=== PATIENT | male | born 1965 | race Caucasian/White ===

== ENCOUNTER → 2017-06-10 | Outpatient (CLI) | payer MEDICARE, MEDICAID ==
[2014-01-29 15:03] VITALS: BMI 24.9
[~2017-06-10] MED LIST: ADAL20KI2 SQ; ALP5 PO; AMO500 PO; ASP325 PO; ASPI-757 PO; ASPIRIN PO; AUG875 PO; AZITHROMYCIN; BACDS PO; CEPH-13 PO; CITA-128 PO; CLO5 PO; COUGH SYRUP; CYCL10TA29 PO; DIA2 PO; DOCU-299 PO; GUAI480S48 PO; GUALA600 PO; HUMERA SQ; HUMIRA IJ; IBUP400T13 PO; LEV500 PO; LISI-362 PO; LOR1 PO; LORA-633 PO; MELA1TAB15 PO; MELA3TAB31 PO; METH5 PO; METR250 PO; MUCINEX PO; OXYC-823 PO; OXYC-869 PO; OXYC20TA86 PO; OXYCODONE; OXYCOTIN PO; OXYIR PO; PER PO; PERD PO; PRE20 PO; SENN-83 PO; SENN8.6C2 PO; SULF500T48 PO; VAR05PT PO
--- NOTE | 2017-06-10 15:05 | RADIOLOGY IMAGING REPORT ---
FACILITY: [facility] [place] PATIENT NAME: Yonas Tovar : 1965 MR: [id number] V: [id number] EXAM DATE: ORDERING PHYSICIAN: MICHAEL RODRIGUEZ TECHNOLOGIST: Location: [facility] Patient: Yonas Tovar : 1965 Visit/Account:[id number] Date of Sevice: 06/10/2017 LIVER HISTORY: Elevated LFTs, daily drinker COMPARISON: CT of the pelvis December 22, 2009 FINDINGS: Gallbladder: Surgically removed Liver: The liver appears normal in size although has a slightly lobular contour. Discrete mass is no t identified Common duct: Normal, 6.2 mm diameter. Pancreas: Partially obscured by bowel, visualized aspects unremarkable. Right kidney: Right kidney appears unremarkable measuring 10.4 cm in length Upper abdominal aorta and IVC: Patent. Ascites: None visualized. IMPRESSION: Post surgical changes from cholecystectomy Slightly lobular contour to the liver although no evidence of hepatomegaly or focal hepatic mass Pancreas not well seen due to overlying bowel gas Report Dictated By: Sharon Brasher MD at 06/10/2017 2:59 PM Report E-Signed By: Sharon Brasher MD at 06/10/2017 3:01 PM WSN:[id number]
== END ==
LOC: US 04:03
PROVIDERS: ATTEND Family Medicine
DX: K76.89 Other specified diseases of liver (principal); Z90.49 Acquired absence of other specified parts of digestive tract
CPT/HCPCS: 76705

== ENCOUNTER → 2017-11-04 | Outpatient (CLI) | payer MEDICARE, MEDICAID ==
[2014-01-29 15:03] VITALS: BMI 24.9
--- NOTE | 2017-11-04 14:14 | RADIOLOGY IMAGING REPORT ---
FACILITY: [facility] PATIENT NAME: Yonas Tovar : 1965 MR: [id number] V: [id number] EXAM DATE: ORDERING PHYSICIAN: ALYSON HENDERSON TECHNOLOGIST: Location: [facility] [place] Patient: Yonas Tovar : 1965 Visit/Account:[id number] Date of Sevice: 11/04/2017 WHOLE BODY BONE SCAN HISTORY: Multiple myeloma TECHNIQUE: 24.6 mCi technetium 99m HDP was injected intravenously. Delayed anterior and posterior wh ole body gamma camera images were obtained. Additional gamma camera images: Right left lateral skull, anterior and posterior pelvis COMPARISON: None. FINDINGS: Bone radiotracer activity: There is increased isotope uptake seen over the right shoulder and distal forearms bilaterally. Increased isotope uptake is seen at several sites in the cervical thoracic an d lumbar spine and over multiple ribs bilaterally. Intense isotope uptake is seen over the posterior aspect of a mid left rib. Degenerative uptake is seen over the left knee in the feet. Is a four we ek defect over the right knee consistent with arthroplasty Patchy uptake over the calvarium also noted Extraosseous radiotracer activity: Unremarkable. Renal and urinary collecting system activity: Unremarkable. IMPRESSION: Isotope uptake over the right shoulder and wrists suggests prior trauma although plain film correlati on is recommended Isotope uptake over multiple ribs could be related to prior fractures. There is intense isotope upta ke over the posterior aspect of the mid left rib suggesting an infiltrative process Focal areas of isotope uptake over the cervical and thoracic and lumbar spine may be related to degen erative changes versus myelomatous involvement Patchy chest uptake over the calvarium could be myelomatous in nature Report Dictated By: Sharon Brasher MD at 11/04/2017 2:05 PM Report E-Signed By: Sharon Brasher MD at 11/04/2017 2:10 PM MERLYN:KARL
== END ==
LOC: NUC 08:32
PROVIDERS: ATTEND Nurse Practitioner Family
DX: C90.00 Multiple myeloma not having achieved remission (principal)
CPT/HCPCS: 78306; A9503

== ENCOUNTER → 2017-11-21 | Day surgery (SDC) | payer MEDICARE, MEDICAID ==
[2014-01-29 15:03] VITALS: Ht 177.8 cm; Wt 76.7 kg
[~2017-11-21] VITALS: Ht 177.8 cm; Wt 76.7 kg
[~2017-11-21] MED LIST changes: +ALB18R INH; +FAMOTIDINE 20 MG TAB PO ONE; +HEPARIN SOD LCK FLSH 100 UN/ML ONE; +KETAMINE HCL 200 MG/20 ML MDV ONE; +LIDOCAINE/SOD BICARB 8.4% SYR ID ONE; +MIDAZOLAM 2 MG/2 ML VIAL IVP PRN; +NORMOSOL R SOLN(*) 1000 ML BAG 1,000 ML IV PRN; +PROPOFOL EMUL(*) 10MG/ML 20 ML 40 ML ONE
[2017-11-21 06:30] VITALS: BP 140/89
--- NOTE | 2017-11-21 06:39 | EKG ---
FACILITY: [facility] PATIENT NAME: TONI HARVEY : [id number] MR: [id number] V: [id number] EXAM DATE: ORDERING PHYSICIAN: BEATRIZ HERNANDEZ TECHNOLOGIST: Test Reason : Blood Pressure : / mmHG Vent. Rate : 090 BPM Atrial Rate : 090 BPM P-R Int : 156 ms QRS Dur : 092 ms QT Int : 380 ms P-R-T Axes : 045 029 032 degrees QTc Int : 464 ms Sinus rhythm No acute appearing findings When compared with ECG of 18-JAN-2014 12:49, No significant change was found Confirmed by JAVED BETANCOURT ([id number]) on 11/21/2017 12:18:12 PM Referred By: Confirmed By:JAVED BETANCOURT
[2017-11-21 07:08] LABS: PLATELET COUNT, AUTOMATED 39 K/uL (150-450)
--- NOTE | 2017-11-21 07:55 | RADIOLOGY IMAGING REPORT ---
FACILITY: [facility] PATIENT NAME: Yonas Tovar : 1965 MR: [id number] V: [id number] EXAM DATE: ORDERING PHYSICIAN: CHRISTINE TRACY TECHNOLOGIST: Location: [facility] Patient: Yonas Tovar : 1965 Visit/Account:[id number] Date of Sevice: 11/21/2017 3 views cervical spine Indication: Preop Comparison: January 26, 2014. Findings: Mild straightening of the normal cervical lordosis. Limited visualization below the C6-C7 disc space secondary to overlapping shoulders. No visualized acute abnormality. The prevertebral soft tissues are within normal limits. The odontoid is unremarkable. The vertebral body heights are well maintained. 2 mm retrolisthesis of C3 on C4. Mild multilevel degenerative disc disease, worst at C6-C7. Mild/moderate multilevel facet arthropathy . IMPRESSION: 1. No acute osseous or acute alignment abnormality of the cervical spine on this examination. 2. Grade 1 retrolisthesis of C3 on C4. 3. Mild/moderate degenerative changes within the cervical spine. Report Dictated By: Balta Jones MD at 11/21/2017 7:49 AM Report E-Signed By: Balta Jones MD at 11/21/2017 7:51 AM WSN:[id number]
--- NOTE | 2017-11-21 08:19 | Short(Outpt) Discharge Summary ---
Discharge Summary Reason for Hosp/Final Diag: (1) Leukopenia Status: Chronic Hospital Course & Plan: Bone marrow biopsy completed without problems. (2) Thrombocytopenia Status: Chronic (3) ANEMIA, UNSPECIFIED Status: Chronic Departure Discharge to: Home, Self Care Discharge Instructions Home Meds Active Scripts Oxycodone Hcl (OXYCONTIN) 10 Mg Tab.er.12h, 10 MG PO Q4H Y for PAIN, #6 Prov:ECORO-ALYSON SCHAEFER DYE MACHINE TENDER-C, ONC 10/29/17 Reported Medications Albuterol Sulfate (VENTOLIN HFA) 18 Gm Inh, 1-2 PUFF INH 3-4XD, INH 11/12/17 Cyclobenzaprine Hcl (CYCLOBENZAPRINE HCL) 10 Mg Tablet, 10 MG PO HS, TAB 01/21/14 [Christine] No Conflict Check, 40 MG SQ [id number], 0 Refills 01/06/11 Lorazepam (Ativan) 1 Mg Tab, 0.5-1 MG PO DAILY Y for ANXIETY for 1 Day, 0 Refills 01/06/11 Lisinopril (Lisinopril) 10 Mg Tablet, 10 MG PO QDAY for Blood Pressure MDD 10 for 30 Days, 0 Refills As directed. 01/06/11 Diet: Regular Activity: As Tolerated Special Instructions: Follow up with your Geospatial Specialist/Oncologist in the next 2 weeks to discuss the results of this test. You may remove the band-aid from your right lower back on 11/23/17, then you can shower. After showering, leave the incision open to air but leave the steristrip in place until it falls off on its own. Do not immerse the incision for 1 week. Problem Qualifiers (1) Leukopenia: Leukopenia type: unspecified Qualified Codes: D72.819 - Decreased white blood cell count, unspecified BEATRIZ LAO MD Nov 21, 2017 08:19
--- NOTE | 2017-11-21 08:23 | Post Operative Progress Note ---
Post Operative Progress Note Date: Nov 21, 2017 Time: 08:19 Surgeon: Hugo Dictation number: [id number] Anesthesia: TIVA by Dr. Kaplan Pre-Op Diagnosis: Thrombocytopenia, leukocytopenia, anemia Post-Op Diagnosis: CHRISSY Findings: None Procedure(s): Bone marrow biopsy Specimen Removed:(May be N/A): Bone marrow Core biopsy of cortical bone Complications: None Fluids: See anesthesia record Estimated Blood Loss: Minimal Date OP Note Dictated: Nov 21, 2017 Time OP Note Dictated: 08:20 BEATRIZ LAO MD Nov 21, 2017 08:23
--- NOTE | 2017-11-21 08:50 | OPERATIVE REPORT 1 ---
EVENT DATE: November 21, 2017 SURGEON: Jey Arias MD ANESTHESIOLOGIST: Maycol Kaplan MD ANESTHESIA: TIVA PREOPERATIVE DIAGNOSIS 1. Thrombocytopenia . 2. Leukocytopenia. 3. Anemia. POSTOPERATIVE DIAGNOSIS 1. Thrombocytopenia . 2. Leukocytopenia. 3. Anemia. PROCEDURE PERFORMED Bone marrow biopsy and aspiration. COMPLICATIONS None. CONDITION Stable. BLOOD LOSS Minimal. INDICATIONS This is a 51-year-old gentleman who was referred to me by the paving foreman as he has multiple cell lines that low and he is requesting a bone marrow biopsy to help him figure out why they are low. DESCRIPTION OF PROCEDURE The patient was brought to the operating room and placed in the left lateral decubitus position on the table. The skin overlying his right posterior superior iliac spine was prepped and draped in sterile fashion. A timeout was completed, and I anesthetized both the skin and the periosteum with 1% Lidocaine plain. I then made a small stab incision in the skin and then used the needle to access the marrow cavity and aspirated 20 mL. of bone marrow into a Heparinated syringe. This was passed immediately to the helper animal laboratory who started processing the sample right away. She confirmed it was good sample. This needle was removed and the core needle was inserted, and I removed two small cores of bone. They were very small because this patient's bone was very hard, and it was very difficult to get the core needle to get a good sample of the bone. After this, I removed the core needle, passed the core samples off the field, and then cleaned and dried the skin. I placed the Steri-Strip over the stab incision and covered it with a band-aid. He was then brought to the recovery room in stable condition having tolerated the procedure without any apparent problems. LAZARO
== END ==
LOC: OR 00:08
PROVIDERS: ATTEND Surgery
DX: D69.6 Thrombocytopenia, unspecified (principal); M06.9 Rheumatoid arthritis, unspecified; I10 Essential (primary) hypertension; F41.9 Anxiety disorder, unspecified
CPT/HCPCS: 36415; 38221; 72040; 85025; 88305; 93005; A9270; J1642; J2250; J2704; J3490; 82310; 82374; 82435; 82565; 82947; 84132; 84295; 84520

== ENCOUNTER 2017-12-02 13:30 | Outpatient (RCR) | payer MEDICARE, MEDICAID ==
[2014-01-29 15:03] VITALS: Wt 79.2 kg
[2017-10-08 14:00] VITALS: BP 128/86
[2017-10-08 16:06] LABS: PLATELET COUNT, AUTOMATED 40 K/uL (150-450)
--- NOTE | 2017-10-09 19:10 | ONCOLOGY CONSULTATION ---
EVENT DATE: October 08, 2017 REFERRING PHYSICIAN Danny Ramon DO REASON FOR CONSULTATION Thrombocytopenia, leukopenia, macrocytosis. CHIEF COMPLAINT Arthralgias, fatigue. HISTORY OF PRESENT ILLNESS Yonas is a very pleasant, 51-year-old gentleman with a history of rheumatoid arthritis, on Humira, hypertension, as well as alcohol and tobacco abuse. He presents today at the request of Dr. Ramon for evaluation of abnormal CBC, including significant thrombocytopenia. The patient reports that he has been treated for a long period of time for his rheumatoid arthritis with Humira, and this has been quite successful at keeping his symptoms under control. He had previously been taking methotrexate and multiple other medications that did not work as well for his rheumatoid arthritis. He reports no fever. He does have expected complaints of joint pain. He reports no shortness of breath, chest pain, or cough. He has had no abdominal pain or changes in his bowel habits. He reports no new urinary symptoms. He does have some easy bruising, but he has had no epistaxis, melena, or hematochezia. He states that he has been drinking pretty heavily for years, but most recently he has averaged anywhere from three alcoholic beverages per night to help him sleep to one pint per night sometimes on the weekends. He did have an ultrasound performed a few months ago that showed nodular changes of the liver. REVIEW OF SYSTEMS Otherwise negative, and all systems reviewed. PAST MEDICAL HISTORY 1. Rheumatoid arthritis. 2. Hypertension. 3. Alcohol abuse. 4. Smoking. CURRENT MEDICATIONS 1. OxyContin. 2. Cyclobenzaprine. 3. Humira injections q.14 days. 4. Lorazepam p.r.n. 5. Lisinopril. ALLERGIES No known drug allergies. He is allergic to WASP VENOM. SOCIAL HISTORY The patient smokes cigarettes, and he drinks. See above. There is also history of use of marijuana. FAMILY HISTORY There are no known hematologic malignancies in the family. PHYSICAL EXAMINATION VITAL SIGNS: Temperature is 98.2, blood pressure 128/86, heart rate is 106, respirations 16, oxygen saturation is 89% on room air. Weight is 78.3 kg. GENERAL: Patient is alert and oriented times three. No apparent distress, sitting in the exam room chair, and appears somewhat chronically ill. HEENT: Anicteric sclerae. NEUROLOGIC: Grossly nonfocal, although his gait is somewhat antalgic. EXTREMITIES: No edema, clubbing, or cyanosis. SKIN: No concerning rash or lesion, although he does have some modest bruising over his forearms and hands. LABORATORY STUDIES Reviewed per the [facility] record as well as outside labs from [facility]. On September 25, 2017, his white blood cell count was 3000 with 40% neutrophils, hemoglobin 16.3, hematocrit 47.9, platelet count 51,000. IMAGING Please see above. ASSESSMENT AND PLAN Thrombocytopenia, macrocytosis, leukopenia/neutropenia. I had a good visit with Yonas today. Symptomatically, he seems to be getting along fairly well. He does have good control over his rheumatoid arthritis symptoms with Humira. He does not have concerning signs or symptoms to suggest significant bleeding. He is not anemic. We spent time today reviewing his labs. He understands that his white count is modestly low, specifically his neutrophil count. He is macrocytic, and most concerning, his platelet count has fallen to the 50,000 range. Upon review of his historical labs, his platelet count back in 2013 was in the 80,000 to 90,000 range. We spent time discussing the possible contributors to his CBC abnormalities. Alcohol is certainly contributing, and I have recommended strongly that he slow down his drinking and stop entirely. He thinks that he can do so, and he will put significant effort toward this. The Humira can also cause some changes in his CBC, but severe thrombocytopenia that we are seeing is not common. Because he has done so well with Humira, it is difficult to recommend that he change this. With autoimmune disorders such as rheumatoid arthritis, immune cytopenias can also be seen. For further workup, I have recommended that he have blood drawn today for some additional studies. This includes a repeat CBC and peripheral smear as well as a reticulocyte count, evaluation for circulating inhibitor, assessment for vitamin B12 and folate deficiency, as well as a plasma cell dyscrasia workup. We discussed that if his peripheral blood workup is unremarkable, and his counts remain abnormal with abstention from alcohol, his next step would be bone marrow biopsy. I will plan to see him back in clinic in the next two to three months after a repeat CBC. Presumably, he will not be drinking at that point. Thank you very much, Dr. Ramon, for allowing me to take part in the care of this very pleasant gentleman. Please do not hesitate to call with any questions or concerns. LAZARO
[2017-10-29 14:02] VITALS: BP 136/91
--- NOTE | 2017-10-29 15:13 | Oncology Progress Note ---
History of Present Illness Evaluation Evaluation Date: Oct 29, 2017 Evaluation Time: 14:10 Primary Care Provider Primary Care Provider: Danny Rodriguez DO Accompanied by Accompanied by: Self Last seen by : Lily 10/08/17 Chief Complaint Chief Complaint Plasma cell dyscrasia workup Review Oncology History Oncology History - 2013 his platelet count has fallen to the 50,000 range. Upon review of his historical labs, his platelet count back in 2013 was in the 80,000 to 90,000 range. We spent time discussing the possible contributors to his CBC abnormalities. Alcohol is certainly contributing, and I have recommended strongly that he slow down his drinking and stop entirely. He thinks that he can do so, and he will put significant effort toward this. The Humira can also cause some changes in his CBC, but severe thrombocytopenia that we are seeing is not common. Because he has done so well with Humira, it is difficult to recommend that he change this. With autoimmune disorders such as rheumatoid arthritis, immune cytopenias can also be seen. For further workup, I have recommended that he have blood drawn today for some additional studies. This includes a repeat CBC and peripheral smear as well as a reticulocyte count, evaluation for circulating inhibitor, assessment for vitamin B12 and folate deficiency, as well as a plasma cell dyscrasia workup. We discussed that if his peripheral blood workup is unremarkable, and his counts remain abnormal with abstention from alcohol, his next step would be bone marrow biopsy. I will plan to see him back in clinic in the next two to three months after a repeat CBC. Presumably, he will not be drinking at that point. Treatment Treatment - Patient has been on self injection Humira 40mg SQ Q14 Days. since 1997 HPI HPI Yonas Padilla is a very pleasant 51-year-old man, who has history of rheumatoid arthritis on treatment with Humira for the last 20 years approximately. . Patient was referred by Dr. Rodriguez for abnormal CBC that revealed Thrombocytopenia, macrocytosis, leukopenia/neutropenia. Further hematology work up after visit with Dr. Comer on 10/08/2017 a SPEP/WILLY pattern shows and IgG type kappa monoclonal protein. The following. Highly suspicions for Multiple Myeloma. Patient's reports being in his usual state of health. Besides working on stop drinking and smoking he informs me that he is doing well otherwise. on physical exam right shoulder pain with limited ROM, Right knee replacement in 2015. with Limited ROM. He is AAOX4, hemodynamically stable and afebrile, denies any cardiac type chest pain, no abdominal pain, no fevers at home, no night sweats, chills, spontaneous bleeding. oral intake appetite, okk, no changes in bowel or bladder pattern. Significant PMH of Rheumatoid arthritis. Hypertension. Alcohol abuse. Smoking. He informs me that he is trying to stop drinking, and smoking. Patient had several additional insightful and appropriate questions especially regarding Bone marrow biopsy, and elevated liver enzymes, due to alcohol consumption. I believe I answered all of their questions to his satisfaction. and he agrees with the treatment plan thus far. He has follow up appointment with PCP Q 3 months and Weight Tester Q6 months. Work up done on 10/08/2017 Beta-2 Glycoprotein 1 Antibodies IgG, IgM is 0 Monoclonal protein detection Quantitation and Characterization, SPEP, WILLY, IgA, IgG, IgM SPEP/WILLY interpretation: M- spike in to beta region. The monoclonal protein peak accounts for 2.59 g/dL of the total 3.09 g/dL of protein in the beta region. this quantitation may include compliment and or transferring components. WILLY pattern shows an IgG type kappa monoclonal protein IMunnoglobulin G is 2740 mg/dL Immunoglobulin A 466 mg/dL Immunoglobulin M is 330 mg/dL T.Protein Electropheresis is 9.20g/dL Alpha 1 globulin 0.15g/dL Beta Globulin 3.09g/dL Living Conditions Lives alone, on Disability since age 17. , has his Brother Kelechi Tovar who lives in [place] as a support system. Social/Occupational History Social History: Social History This is a 51 Yr old White male, he is S Single and has [] Children Hx Smoking: Yes Allergies & Medications Allergies: Coded Allergies: Wasp Venom (Verified Adverse Reaction, Severe, 01/21/14) Home Meds Active Scripts Oxycodone Hcl (OXYCONTIN) 10 Mg Tab.er.12h, 10 MG PO Q4H Y for PAIN, #6 Prov:ALYSON HENDERSON-Jana, ONC 10/29/17 Reported Medications Cyclobenzaprine Hcl (CYCLOBENZAPRINE HCL) 10 Mg Tablet, 10 MG PO HS, TAB 01/21/14 [Christine] No Conflict Check, 40 MG SQ [id number], 0 Refills 01/06/11 Lorazepam (Ativan) 1 Mg Tab, 0.5-1 MG PO DAILY Y for ANXIETY for 1 Day, 0 Refills 01/06/11 Lisinopril (Lisinopril) 10 Mg Tablet, 10 MG PO QDAY for Blood Pressure MDD 10 for 30 Days, 0 Refills As directed. 01/06/11 Discontinued Reported Medications Varenicline Tartrate (CHANTIX) 0.5 Mg Tab, 1 MG PO BID, TAB 10/08/17 Review of Systems Constitution: Denies Appetite/Weight Change, Denies Fever/Chills/Sweating, Denies Recent Infection, Denies Other HEENT: No EARS: Tinnitus, No NOSE: Nasal Discharge, No THROAT: Sore Throat, No EYES: Dipolpia, No EARS: Hearing Problems, No NOSE: Epistaxis, No THROAT: Mouth Ulcers, No EYES: Vision Change, No OTHER Respiratory: No Cough, No Expectoration, No Hemoptysis, No Shortness of Breath , No OTHER Cardiovascular: No Chest Pain, No Orthopnea, No Edema, No Palpitations, No OTHER Gastrointestinal: No Nausea, No Vomitting, No Diarrehea, No Constipation, No Heart Burn, No Swallowing Difficulties, No Abdominal Pain, No Other Gentiourinary: No Hematuria, No Dysuria, No Nocturia, No Other Musculoskeletal: Joint Pain Hematological: Bruising, Fatigue Skin: Erythema Psychiatric: Anxiety, Other Vital Signs Vital Signs Temperature: 98.4 Pulse: 102 BP Systolic: 136 BP Diastolic: 91 Respiratory Rate: 16 O2 SAT: 91 O2 Delivery: Height (feet) Height (inches) Weight lb: 169 Weight oz: Weight Kg (Maximo): Pain: 6 ECOG 1 Physical Exam General: Looks Stable HEENT: HEAD:Atraumatic, No EYES: Conjuctivitis, No EYES: Icterus, No MOUTH: Mucocitis, No MOUTH: Oral Thrush, No SINUS: Tenderness to Palpation, No Other Neck: Supple, No Cervical Lymphadenopathy, No Subclavicular Lymphadopathy, No Thyromegaly, No Other Lungs: Clear to Auscultation, Percussion Bilaterally, No Other Heart: Regular Rate and Rhythm Abdomen: Soft and Nontender, No Hepatosplenomegaly, No Masses, No Other Extremities: No Cyanosis, No Clubbing, No Edema, Other (Right shoulder ROM, ) Lymphatics: No Peripheral Lymphadenopathy, No Other Psychiatric: Mood appears normal Skin: No Skin Rashes, Bruising, No Purpura, No Moist Desquamation, No Dry Desquamation, No Errythema, No Mild Errythema, No Moderate Errythema, No Severe Errythema, No Induration, No Other Breast: No No Masses, No No Nipple Discharge, No No Skin Changes, No Other Assessment and Plan Assessment and Plan Yonas Padilla is a very pleasant 51-year-old man, who has history of rheumatoid arthritis on treatment with Humira for the last 20 years approximately. Patient was referred by Dr. Rodriguez for abnormal CBC that revealed Thrombocytopenia, macrocytosis, leukopenia/neutropenia. Further hematology work up after visit with Dr. Comer on 10/08/2017 a SPEP/WILLY pattern shows and IgG type kappa monoclonal protein. The following. Highly suspicions for Multiple Myeloma. Patient's reports being in his usual state of health. Besides working on stop drinking and smoking he informs me that he is doing well otherwise. I explained to the patient the importance to proceed with the workup in a timely manner, he agrees with the plan. He informs me that he would like to detox for a few weeks before going through the bone marrow biopsy. He will still undergo the x-ray skeletal bone survey in Nuclear medicine. An updated medication reconciliation performed today. DIAGNOSTIC DATA CBC showed a WBC of 3.1; MCV 100.8; platelet count 40; ANC 0.8; chemistry panel shows T bili of 1.8; AST 75; AST 50; alkaline phosphatase 129; and total protein 9.3; vitamin B12 624; folate 9.7; SPEP/WILLY interpretation: M- spike in to beta region. The monoclonal protein peak accounts for 2.59 g/dL of the total 3.09 g/dL of protein in the beta region. this quantitation may include compliment and or transferring components. WILLY pattern shows an IgG type kappa monoclonal protein IMunnoglobulin G is 2740 mg/dL Immunoglobulin A 466 mg/dL Immunoglobulin M is 330 mg/dL T.Protein Electropheresis is 9.20g/dL Alpha 1 globulin 0.15g/dL Beta Globulin 3.09g/dL CHRONIC 1. Rheumatoid arthritis. Patient has been on self injection Humira 40mg SQ Q14 Days. since 1997 2. Hypertension. on Lisinopril 10 mg PO daily 3. Alcohol abuse. He is working to stop 4. Smoking. he smokes 5-10 cigarettes per day, he previously used Chantix. Smoking cessation education provided, and he is on board with plan 5. Right Knee replacement in 2014, he takes Oxycodone 10mg Po Q 4hours. 6. Anxiety. takes 0.5-1mg Ativan Qday 7. Insomnia. on Cyclobenzaprine.10mg QHS 8. Drug/Alcohol induced liver injury. Elevated LFTs, mostly from alcohol consumption and possible Humira. PLAN #[address] Arias for Bone marrow biopsy #2 Bone marrow biopsy with compaas, multiple myeloma #3 X-ray skeletal bone survey in Nuclear medicine #4 Include magnesium on CBC CMP with next lab draw #5 Return to clinic after the above #[address] Comer on 01/08/2018 #7 Follow up with PCP in 2 months and with Weight Tester in 4 months. -Education, patient instructed to go to ER immediately and or call Clinic if any big bruises, active bleeding, Shortness of Breath, Temp >/=100.4, fevers, chills, cardiac type chest pain, bleeding, excessive bruising, headaches, blurry vision, dizziness, abdominal pain, difficulty swallowing, and pain unrelieved by medication. TIME SPENT: 45 minutes 40 > minutes includes but not limited to discussion, counselling and co-ordination~ of care. Discussion with other health care providers, record review, review of lab work, diagnostic tests. Plan discussed extensively with patient. All the questions answered today. Thank you for the opportunity to be involved in the care of Yonas Tovar. Billing Level: Return visit 5 CC Copies to: DANNY RODRIGUEZ DO; KEITH COMER MD-ALYSON SCHAEFER CREDIT CONTROL OFFICER-C, ONC Oct 29, 2017 15:13
[2017-11-04 09:51] VITALS: BP 127/91
[~2017-12-02 13:30] MED LIST changes: -FAMOTIDINE 20 MG TAB PO ONE; -HEPARIN SOD LCK FLSH 100 UN/ML ONE; -KETAMINE HCL 200 MG/20 ML MDV ONE; -LIDOCAINE/SOD BICARB 8.4% SYR ID ONE; -MIDAZOLAM 2 MG/2 ML VIAL IVP PRN; -NORMOSOL R SOLN(*) 1000 ML BAG 1,000 ML IV PRN; +PNEUMOC 13-VAL CONJ-DIP CRM/PF 0.5 ML SYR IM ONLY ONE; -PROPOFOL EMUL(*) 10MG/ML 20 ML 40 ML ONE
[2017-12-02 13:42] VITALS: BP 113/77
--- NOTE | 2017-12-03 04:48 | RADIOLOGY IMAGING REPORT ---
FACILITY: [facility] - [place] PATIENT NAME: Yonas Tovar : 1965 MR: [id number] V: [id number] EXAM DATE: ORDERING PHYSICIAN: KEITH COMER TECHNOLOGIST: Location: [facility] - [place] Patient: Yonas Tovar : 1965 Visit/Account:[id number] Date of Sevice: 12/02/2017 Skeletal survey: Indication: Multiple myeloma. Technique: Comparison: Whole body bone scan dated 10/05/2017. Findings: The lateral view of the skull demonstrates uniform skeletal mineralization. No osteolytic lesions are identified. No destructive lesions are identified in the cervical spine. There is moderate degenerative disc dise ase and mild osteoarthritic spur formation. No destructive lesions are identified in the thoracic spine. There is mild scoliosis and mild degener ative disc space narrowing. There is a calcified lesion in the left paraspinal soft tissues, likely r epresenting a lymph node. No destructive lesions are identified in the lumbar spine. There is spondylolysis and spondylolisthes is at L5-S1. There is mild degenerative disc space narrowing and marginal osteophyte formation at all levels. There appears to be subtle sclerosis in the medial aspect of the left seventh rib, correlating with t he abnormality seen on bone scan. No bone destruction or fracture is observed. The findings suggest n eoplastic infiltration. There are old healed fractures in the lateral margins of the right eighth, ni nth, and 10th ribs. The heart size is normal. The lungs are well expanded and clear. No focal parenchymal or pleural abno rmality is identified. A frontal view of the pelvis demonstrates no evidence of destructive skeletal lesions. The hips appea r symmetrical and unremarkable. The bilateral femurs appear well mineralized and intact. No destructi ve lesions are identified. A right knee prosthesis appears unremarkable. Impression: No osteolytic skeletal lesions are clearly identified. There appears to be subtle scleros is in the left seventh rib, suggesting neoplastic infiltration. There are some old healed fractures i n the right ribs. Degenerative disc disease and osteoarthritis are observed in the cervical, thoracic, and lumbar spine . Report Dictated By: Oliver Rivera MD at 12/03/2017 4:27 AM Report E-Signed By: Oliver Rivera MD at 12/03/2017 4:44 AM WSN:[id number]
--- NOTE | 2017-12-04 08:11 | [facility]USTER ONCOLOGY NOTE ---
EVENT DATE: December 02, 2017 CHIEF COMPLAINT/REASON FOR VISIT Mr. Tovar is a pleasant 51-year-old gentleman with a history of alcohol abuse and rheumatoid arthritis that presents with thrombocytopenia and leukopenia with macrocytosis. HISTORY OF PRESENT ILLNESS Yonas returns. He has a known history of RA, on Humira, as well as significant alcohol and tobacco abuse. He had an appropriate workup including a bone marrow biopsy but this showed only a very faint MGUS but no other abnormalities. No lymphoma. No features consistent with ITP. I suspected based on his history and the results from this extensive bone marrow evaluation that his major issue is alcohol abuse. We discussed this and he agrees and he is working to cut down. He believes he has cut down about 50% thus far and will continue to do so. I believe it is critical for him to continue to follow with Dr. Ramon as well as potentially with hepatology/GI as well. His rheumatoid arthritis and Humira are likely minor contributors as well but I think the benefits of continued treatment outweigh the risks. PAST MEDICAL HISTORY 1. RA. 2. Hypertension. 3. Alcohol abuse. 4. Tobacco use. MEDICATIONS 1. OxyContin. 2. Cyclobenzaprine. 3. Humira injections every two weeks. 4. Lorazepam as needed. 5. Lisinopril. ALLERGIES No known drug allergies. SOCIAL HISTORY Significant alcohol use, greater than three to four drinks per night on a daily basis, sometimes more. FAMILY HISTORY No known cancer in the family. REVIEW OF SYSTEMS CONSTITUTIONAL: No fevers, chills, significant weight change. HEENT: No headache or vision changes. CARDIOVASCULAR: No chest pain, dyspnea on exertion or edema. RESPIRATORY: No shortness of breath, wheeze or cough. GASTROINTESTINAL: No nausea or vomiting. GENITOURINARY: No dysuria or hematuria. MUSCULOSKELETAL: No weakness or joint pain. PSYCHIATRIC: No anxiety or depression. ENDOCRINE: No heat or cold intolerance. SKIN: No concerning rashes or lesions. Remainder of the 14-point review of systems is otherwise negative. PHYSICAL EXAMINATION VITAL SIGNS: Blood pressure 113/77, pulse 107, respiratory rate 16, temperature 97.4 Fahrenheit, oxygen saturation 91% on room air. Weight 79.2 kg. Pain 5/10, fatigue 0/10. GENERAL: Stable condition, resting comfortably in the chair. HEENT: Normocephalic, atraumatic. LYMPHATIC: No appreciable cervical, supraclavicular or axillary adenopathy. EXTREMITIES: No clubbing, cyanosis or edema. PSYCHIATRIC: Normal mood and affect. Patient appeared slightly nervous at the beginning of the visit but calmed during our time together. IMPRESSION AND PLAN Mr. Tovar is a pleasant 51-year-old gentleman with the followin. Thrombocytopenia, neutropenia, monocytosis. I believe that the main issue is mild bone marrow dysfunction due to alcohol use. He has a very small MGUS that should be followed periodically and we will repeat a kappa level. 0.2% of the bone marrow biopsy showed clonal plasma cells. This is in the body of the report. I do not believe it is contributing to any of his lab abnormalities. 2. Alcohol abuse. I believe this is his most important health issue right now. As Dr. Ramon has done, I stressed the importance of cutting back and hopefully completely discontinuing alcohol. He states he has cut it back in half and will continue to do so. With his low platelet count, he would be at risk for significant bleeding if he had a major trauma. However, no intervention is required at this time. ITP is on the differential. However, I think it is more likely related to the liver. I answered all of his questions today. I will see him back in the new year. Billing: Return visit level 5. Total time 45 minutes, counseling time 20. MTDD
== END 2018-01-05 ==
LOC: ONC 13:30
PROVIDERS: ATTEND Internal Medicine Medical Oncology
DX: D69.6 Thrombocytopenia, unspecified (principal); D75.89 Other specified diseases of blood and blood-forming organs; D72.819 Decreased white blood cell count, unspecified; F10.99 Alcohol use, unspecified with unspecified alcohol-induced disorder; I10 Essential (primary) hypertension; M06.9 Rheumatoid arthritis, unspecified; Z72.0 Tobacco use; G47.00 Insomnia, unspecified; Z96.651 Presence of right artificial knee joint; F41.9 Anxiety disorder, unspecified; Z23 Encounter for immunization
CPT/HCPCS: 36415; 77075; 82607; 82746; 82784; 83883; 84165; 85025; 85045; 85525; 85610; 85613; 85635; 85670; 85730; 85732; 86146; 86334; 90471; 90670; G0463; 82040; 82247; 82310; 82374; 82435; 82565; 82947; 84075; 84132; 84155; 84295; 84450; 84460; 84520; 99202; 99212

== ENCOUNTER 2018-06-27 09:27 | Outpatient (RCR) | payer MEDICARE, MEDICAID ==
[2014-01-29 15:03] VITALS: BMI 24.9
[~2018-06-27 09:27] MED LIST changes: -PNEUMOC 13-VAL CONJ-DIP CRM/PF 0.5 ML SYR IM ONLY ONE
== END 2018-07-01 13:02 | disposition home or self-care (01) ==
LOC: ONC 09:27
PROVIDERS: ATTEND Internal Medicine
DX: C90.00 Multiple myeloma not having achieved remission (principal); D64.9 Anemia, unspecified

== ENCOUNTER → 2018-07-04 | Outpatient (REF) | payer MEDICARE, MEDICAID ==
[2014-01-29 15:03] VITALS: BMI 24.9
== END ==
LOC: ZZSENDIN 15:54
PROVIDERS: ATTEND Family Medicine
DX: L95.8 Other vasculitis limited to the skin (principal)
CPT/HCPCS: 86255

== ENCOUNTER 2018-07-09 13:17 | Outpatient (RCR) | payer MEDICARE, MEDICAID ==
[2014-01-29 15:03] VITALS: Wt 79.9 kg
[2018-07-01 15:01] VITALS: BP 138/94
[2018-07-01 16:08] LABS: PLATELET COUNT, AUTOMATED 41 K/uL (150-450)
[2018-07-07 14:06] VITALS: BP 121/82
--- NOTE | 2018-07-08 03:13 | ONCOLOGY FOLLOW UP NOTE ---
EVENT DATE: July 07, 2018 CHIEF COMPLAINT/REASON FOR VISIT Mr. Tovar is a pleasant 52-year-old gentleman with a history of tobacco and alcohol use, rheumatoid arthritis, who presented with thrombocytopenia, leukopenia, macrocytosis, and an elevated MGUS. HISTORY OF PRESENT ILLNESS Yonas returns. He has a known history of RA on Humira as well as significant alcohol and tobacco use. He had an appropriate workup including a bone marrow biopsy, but this showed only a very faint MGUS, but no other abnormalities. No lymphoma and no features consistent with ITP. It is common to see low-level MGUS with RA. I suspect that his bone marrow was suppressed due to alcohol use and inflammatory disease. He is trying to cut down the tobacco and alcohol. Today he has a rash as well as a significant elevated hematocrit of 57%. He has no pruritus with this, so I do not believe it is a scabies or infection rash. He currently has an upper respiratory infection, so this could be related to that infection. He was put on antibiotics last Saturday. He can follow up with his primary care provider and potentially Dermatology if this rash does not improve. He does believe the rash preceded the infection. PAST MEDICAL HISTORY 1. RA. 2. Hypertension. 3. Alcohol abuse. 4. Tobacco use. ALLERGIES No known drug allergies. SOCIAL HISTORY Significant alcohol use, greater than three to four drinks per night on a daily basis, sometimes more. FAMILY HISTORY No known cancer in the family. REVIEW OF SYSTEMS CONSTITUTIONAL: No fevers, chills, significant weight change. His weight is stable compared to last year. HEENT: No headache or vision changes. SKIN: Positive rash, mostly on the trunk. CARDIOVASCULAR: No chest pain, dyspnea on exertion or edema. RESPIRATORY: No shortness of breath, wheeze or cough. GASTROINTESTINAL: No nausea or vomiting. He does note a hoarse voice for approximately five days, which is consistent with an infection as opposed to a tumor or other issue. GENITOURINARY: No dysuria or hematuria. MUSCULOSKELETAL: No weakness or joint pain. PSYCHIATRIC: No anxiety or depression. ENDOCRINE: No heat or cold intolerance. Remainder of 14-point review of systems is otherwise negative. PHYSICAL EXAMINATION VITAL SIGNS: Blood pressure 121/82, pulse 120, respiratory rate 16, temperature 97.4 Fahrenheit, oxygen saturation 93% on room air. Weight 79.9 kg. Pain zero/10, fatigue zero/10. GENERAL: Stable condition, resting comfortably in the chair. HEENT: Normocephalic, atraumatic. He has positive erythema on the posterior pharynx and was started on antibiotics by his primary care provider team last Saturday. SKIN: The patient has a maculopapular rash that is present on the chest and neck. Minimal if any involvement of the face. He has an old dog scratch lesion on the left hand, but there does not appear to be infection. I do not believe that this is a root of the infection. CARDIOVASCULAR: Tachycardic today. RESPIRATORY: Clear. ABDOMEN: Soft. EXTREMITIES: No significant edema. PSYCHIATRIC: Normal mood and affect. Remainder of physical exam otherwise unremarkable. IMPRESSION/REPORT/PLAN Mr. Tovar is a pleasant 52-year-old gentleman with the followin. Thrombocytopenia, neutropenia, monocytosis, and monoclonal gammopathy of undetermined significance (MGUS). I believe the main issue is bone marrow dysfunction related to alcohol use. He has a very small-level MGUS that we should follow every six months. 2. Secondary erythrocytosis. His hematocrit was 57%. I believe we should arrange for a phlebotomy, and he may have more energy with this. Risk factors include living at altitude; tobacco use, which likely indicates he has some level of lung disease due to this. There could be a component of apnea as well. 3. Alcohol abuse. I continue to believe this is his most pressing health issue. I stressed the importance of cutting it back. Answered all of his questions today. BILLING Return visit level 4. Total time 30 minutes, counseling time 20; high risk, high complexity. [facility]
[2018-07-09 13:26] VITALS: BP 120/85
[2018-08-14] MEDS ORDERED: ADAL40PE4 SQ (19:21)
== END 2018-09-29 ==
LOC: SPU 13:17
PROVIDERS: ATTEND Internal Medicine
DX: D69.6 Thrombocytopenia, unspecified (principal); D70.9 Neutropenia, unspecified; D72.821 Monocytosis (symptomatic); D75.1 Secondary polycythemia; F10.10 Alcohol abuse, uncomplicated; D64.9 Anemia, unspecified; C90.00 Multiple myeloma not having achieved remission
CPT/HCPCS: 36415; 83883; 85014; 85025; G0463; 99212

== ENCOUNTER 2018-08-14 19:10 | Emergency (ER) | payer MEDICARE, MEDICAID ==
[2014-01-29 15:03] VITALS: Wt 79.4 kg
[2018-08-14] MEDS ORDERED: ADAL40PE4 SQ (19:21)
--- NOTE | 2018-08-14 19:30 | ER Report ---
History and Physical Time Seen By MD: 19:30 Hx. of Stated Complaint: PT REPORTS DRINKING LAST NIGHT AND FALLING. PT REPORTS LOW PLATELETS AND IS WORRIED ABOUT POSSIBLE BLEEDS. HPI/ROS CHIEF COMPLAINT: fall with toe injury, nosebleed HISTORY OF PRESENT ILLNESS: This is a 52 year old male. He fell last night after drinking a 5th of alcohol. He drinks a pint every other day. Has chronic thrombocytopenia. Had an injury to hi left great toe with bruising. He is also having a nosebleed. Denies hitting his head. The nose bleed happened today after blowing his nose vigorously, then picking his nose. Right side nasal passage. Has no neck pain or other injuries. Not much bleeding, but continues to ooze and feeling this go down his throat. No other bleeding such as in the urine or stool. Allergies: Coded Allergies: venom-wasp (Verified Adverse Reaction, Severe, 08/14/18) Home Meds Active Scripts Oxycodone Hcl (OXYCONTIN) 10 Mg Tab.er.12h, 10 MG PO Q4H PRN for PAIN, #6 Prov:BRENDAN-ALYSON SCHAEFER CRYSTAL CALIBRATOR-C, ONC 10/29/17 Reported Medications Adalimumab (HUMIRA) 40 Mg/0.8 Ml Pen.[email or web address], 40 MG SQ EVERY 14 DAYS 08/14/18 Albuterol Sulfate (VENTOLIN HFA) 18 Gm Inh, 1-2 PUFF INH 3-4XD, INH 11/12/17 Cyclobenzaprine Hcl (CYCLOBENZAPRINE HCL) 10 Mg Tablet, 10 MG PO HS, TAB 01/21/14 Lorazepam (Ativan) 1 Mg Tab, 0.5-1 MG PO DAILY PRN for ANXIETY for 1 Day, 0 Refills 01/06/11 Lisinopril (Lisinopril) 10 Mg Tablet, 10 MG PO QDAY for Blood Pressure MDD 10 for 30 Days, 0 Refills As directed. 01/06/11 Discontinued Reported Medications [Christine] No Conflict Check, 40 MG SQ [id number], 0 Refills 01/06/11 Reviewed Nurses Notes: Yes Hx Smoking: Yes (1-2 CIGS/DAY DOWN FROM 1PPD X 20 YRS.) Smoking Status: Current: Every Day Smoker Hx Alcohol Use: Yes (ETOH, STARTED AA AND QUIT THIS SUMMER 2009.) Constitutional Vital Sign - Last 24 Hours 08/14/18 08/14/18 08/14/18 08/14/18 19:15 19:17 19:25 19:30 Temp 99.2 Pulse 114 108 Resp 18 B/P (MAP) 159/98 159/98 (118) 146/94 (111) Pulse Ox 85 92 O2 Delivery Room Air 08/14/18 08/14/18 08/14/18 08/14/18 19:40 19:55 20:00 20:10 Pulse 114 107 110 B/P (MAP) 153/111 (125) Pulse Ox 92 92 90 08/14/18 08/14/18 08/14/18 08/14/18 20:25 20:30 20:40 20:55 Pulse 107 102 B/P (MAP) 146/101 (116) Pulse Ox 88 87 82 08/14/18 21:00 B/P (MAP) 148/100 (116) Physical Exam General Appearance: Alert, no acute distress. Eyes: Pupils equal and round no injection. ENT: Normal oral mucosa. Moist mucous membranes. Posterior oropharynx has some blood draining down the back of the throat. Right nasal passage with diffuse a chapin of abrasion of nasal septum, small oozing blood. Neck: Neck is supple and non tender. Respiratory: Chest is non tender, lungs are clear to auscultation. Cardiac: regular rate and rhythm Neuro: Alert and oriented x 3. No focal deficits. Musculoskeletal: Has some pain over 1st MTP joint of left foot, some associated bruising. Moderate pain. Good active and passive range of motion. Skin: No rashes or lesions. DIFFERENTIAL DIAGNOSIS: After history and physical exam differential diagnosis was considered for patient with history of fall, contusion of the left first MTP joint and bruising but no other injuries. Also with epistaxis today from nasal trauma from blowing and picking nose Medical Decision Making Data Points Result Diagram: 08/14/181919 Laboratory Hematology Test 08/14/18 19:20 Red Blood Count 4.70 M/uL (4.00-5.60) Mean Corpuscular Volume 100.3 fL (80.0-96.0) Mean Corpuscular Hemoglobin 34.9 pg (26.0-33.0) Mean Corpuscular Hemoglobin Concent 34.8 g/dL (32.0-36.0) Red Cell Distribution Width 15.2 % (11.5-14.5) Mean Platelet Volume 10.5 fL (7.2-11.1) Neutrophils (%) (Auto) 45.9 % (39.4-72.5) Lymphocytes (%) (Auto) 36.2 % (17.6-49.6) Monocytes (%) (Auto) 16.4 % (4.1-12.4) Eosinophils (%) (Auto) 0.3 % (0.4-6.7) Basophils (%) (Auto) 1.2 % (0.3-1.4) Nucleated RBC Relative Count (auto) 0.1 /100WBC Neutrophils # (Auto) 1.1 K/uL (2.0-7.4) Lymphocytes # (Auto) 0.9 K/uL (1.3-3.6) Monocytes # (Auto) 0.4 K/uL (0.3-1.0) Eosinophils # (Auto) 0.0 K/uL (0.0-0.5) Basophils # (Auto) 0.0 K/uL (0.0-0.1) Nucleated RBC Absolute Count (auto) 0.00 K/uL Peripheral Blood Smear Yes Y/N Chemistry Test 08/14/18 19:20 White Blood Count 2.5 k/uL (4.5-11.0) Red Blood Count 4.70 M/uL (4.00-5.60) Hemoglobin 16.4 g/dL (14.0-18.0) Hematocrit 47.1 % (42.0-52.0) Mean Corpuscular Volume 100.3 fL (80.0-96.0) Mean Corpuscular Hemoglobin 34.9 pg (26.0-33.0) Mean Corpuscular Hemoglobin Concent 34.8 g/dL (32.0-36.0) Red Cell Distribution Width 15.2 % (11.5-14.5) Platelet Count 34 K/uL (150-450) Mean Platelet Volume 10.5 fL (7.2-11.1) Neutrophils (%) (Auto) 45.9 % (39.4-72.5) Lymphocytes (%) (Auto) 36.2 % (17.6-49.6) Monocytes (%) (Auto) 16.4 % (4.1-12.4) Eosinophils (%) (Auto) 0.3 % (0.4-6.7) Basophils (%) (Auto) 1.2 % (0.3-1.4) Nucleated RBC Relative Count (auto) 0.1 /100WBC Neutrophils # (Auto) 1.1 K/uL (2.0-7.4) Lymphocytes # (Auto) 0.9 K/uL (1.3-3.6) Monocytes # (Auto) 0.4 K/uL (0.3-1.0) Eosinophils # (Auto) 0.0 K/uL (0.0-0.5) Basophils # (Auto) 0.0 K/uL (0.0-0.1) Nucleated RBC Absolute Count (auto) 0.00 K/uL Peripheral Blood Smear Yes Y/N ED Course/Re-evaluation ED Course Reviewed the wound on left toe. Appears strain and contusion. Offered x-ray, but did not think it was broken, and patient will decline at this time. Focused on epistaxis treatment. Procedure: Epistaxis control. Initially treated with compression. The patient had continued bleeding, small amount of oozing. We then used Neosynephrine nasal spray to try and acheive some vasoconstriction to slow or stop the bleeding. We also used some cotton soaked with 1% lidocaine with epinephrine, 0.5cc in the nasal passage. The nose was re-clamped and we waited to re-evaluate. Re-evaluation revealed slowing of the bleeding. The was identified and was on the anterior nasal septum, more of a wide based abrasion. Further treatment with cotton soaked with Tranexemic acid. No nasal packing was needed. Following the procedure the patient was re-examined and the bleeding was well controlled. The patient tolerated the procedure well. The procedure was performed by myself. Labs show continued thrombocytopenia, recommended continued follow-up with his PCP for monitoring. Decision to Disposition Date: August 14, 2018 Decision to Disposition Time: 21:05 Depart Departure Latest Vital Signs Vital Signs Date Time Temp Pulse Resp B/P (MAP) Pulse Ox O2 Delivery O2 Flow Rate FiO2 08/14/18 21:00 148/100 (116) 08/14/18 20:55 82 08/14/18 20:40 102 08/14/18 19:15 99.2 18 Room Air Impression: Primary Impression: Epistaxis Additional Impression: Thrombocytopenia Condition: Improved Disposition: HOME OR SELF-CARE Problem Qualifiers WILIAM PORTILLO MD August 14, 2018 19:30
[2018-08-14] MEDS ORDERED: ENT KIT ONE (20:00)
[2018-08-14] MEDS ORDERED: TRANEXAMIC AC 1000 MG/10ML SDV ONE (20:05)
[2018-08-14 21:00] VITALS: BP 148/100
[2018-08-14 21:16] LABS: PLATELET COUNT, AUTOMATED 34 K/uL (150-450)
[2018-08-14] MEDS ORDERED: PHENYLEPHRINE 0.5% 15 ML BTL ONE (21:20)
[2018-08-14] MEDS: LIDO/EPI 2% MPF 1:200,000 20ML INFIL ONE (21:20)
[2018-08-14] MEDS ORDERED: LIDO/EPI 2% MDV 1:100,000 20ML INFIL ONE (22:20)
== END 2018-08-14 21:13 | disposition home or self-care (01) ==
LOC: ER 19:22
DX: R04.0 Epistaxis (principal); D69.6 Thrombocytopenia, unspecified
CPT/HCPCS: 30901; 85025; 99282; A9270

== ENCOUNTER → 2018-11-14 | Outpatient (CLI) | payer MEDICARE, MEDICAID ==
[2014-01-29 15:03] VITALS: BMI 24.9
[~2018-11-14] MED LIST changes: +ADAL40PE4 SQ
--- NOTE | 2018-11-14 13:47 | RADIOLOGY IMAGING REPORT ---
FACILITY: [facility] - [place] PATIENT NAME: Yonas Tovar : 1965 MR: [id number] V: [id number] EXAM DATE: ORDERING PHYSICIAN: BEATRIZ JIMENEZ TECHNOLOGIST: Location: [facility] [place] Patient: Yonas Tovar : 1965 Visit/Account:[id number] Date of Sevice: 11/14/2018 EXAMINATION: Abdominal ultrasound complete HISTORY: Elevated liver enzymes, daily drinker COMPARISON: Liver ultrasound June 10, 2017 FINDINGS: Gallbladder: Surgically removed Liver: There is a heterogeneous echotexture throughout the liver although discrete mass is not seen. Slightly lobular contour Common duct: Normal measuring three mm. Pancreas: Partially obscured by bowel gas although the visualized portion appears unremarkable Spleen: Enlarged measuring 16.3 cm in length. Kidneys: Normal in size and echogenicity, the right measures 10.3 cm in length, and the left 11.4 cm . No hydronephrosis. Upper abdominal aorta and IVC: Negative. Ascites: None. IMPRESSION: Postsurgical changes from a cholecystectomy. Heterogeneous echotexture throughout the liver although discrete masses are not seen. There is a sli ghtly lobular contour. Report Dictated By: Sharon Brasher MD at 11/14/2018 1:38 PM Report E-Signed By: Sharon Brasher MD at 11/14/2018 1:40 PM WSN:[id number]
== END ==
LOC: US 10-21 00:55
PROVIDERS: ATTEND Family Medicine
DX: R94.5 Abnormal results of liver function studies (principal); Z90.49 Acquired absence of other specified parts of digestive tract
CPT/HCPCS: 76700